=== PATIENT | female | born 1995 | race Caucasian/White ===

== ENCOUNTER 2016-09-30 13:41 | Emergency (ER) | payer BC, OTHER ==
[2016-09-30 16:28] VITALS: BP 118/55
--- NOTE | 2016-09-30 17:19 | UC ---
Throat Pain/Nasal Osorio HPI - HPI Summary HPI Summary: pt presents with c/o generalized malaise, cough, nasal congestion, sinus pressure,chills and PND X 10 days Pt has history of sinusitis, environmental allergies that she does not manage with OTC antihistamine. - History of Current Complaint Chief Complaint: UCRespiratory Stated Complaint: SINUS COMPLAINT Time Seen by Provider: 09/30/16 16:55 Hx Obtained From: Patient Hx Last Menstrual Period: unknown ?: No Onset/Duration: Gradual Onset, Lasting Days Severity: Mild Associated Signs & Symptoms: Positive: Sinus Discomfort - maxillary Related History: Seasonal Allergies - not managed with antihistamines - Allergies/Home Medications Allergies/Adverse Reactions: Allergies Allergy/AdvReac Type Severity Reaction Status Date / Time No Known Allergies Allergy Verified 09/30/16 16:23 PMH/Surg Hx/FS Hx/Imm Hx Previously Healthy: Yes Respiratory History Of: Reports: Asthma - as a child Other History Of: Negative For: Anticoagulant Therapy - Surgical History Surgical History: None - Family History Known Family History: Positive: None, Other - postivie FMH of lacerations - Social History Occupation: Student Alcohol Use: Occasionally Substance Use Type: None Smoking Status (MU): Never Smoked Tobacco - Immunization History Most Recent Tetanus Shot: UTD Review of Systems Constitutional: Fever, Chills, Fatigue Skin: Negative Eyes: Negative ENT: Other - sinus pressure, nasal congestion, PND Respiratory: Cough Cardiovascular: Negative Gastrointestinal: Negative Genitourinary: Negative Motor: Negative Neurovascular: Negative Musculoskeletal: Myalgia Neurological: Headache Psychological: Negative All Other Systems Reviewed And Are Negative: Yes Physical Exam Triage Information Reviewed: Yes Appearance: Ill-Appearing Vital Signs: Initial Vital Signs Temp 99 F 09/30/16 16:24 Pulse 90 09/30/16 16:24 Resp 16 09/30/16 16:24 BP 118/55 09/30/16 16:24 Pulse Ox 99 09/30/16 16:24 Vital Signs Reviewed: Yes Eye Exam: Normal ENT Exam: Other ENT: Positive: Nasal congestion, Other: - frontal and maxillary tenderness, Neck exam: Normal Respiratory Exam: Normal Cardiovascular Exam: Normal Musculoskeletal Exam: Normal Neurological Exam: Normal Psychological Exam: Normal Skin Exam: Normal Throat Pain/Nasal Course/Dx - Differential Dx/Diagnosis Differential Diagnosis/HQI/PQRI: Sinusitis, URI Provider Diagnoses: sinusitis Discharge - Discharge Plan Condition: Stable Disposition: HOME Prescriptions: Amoxicillin (*) [Amoxicillin 875 MG (*)] 875 mg PO BID #20 tab Loratadine & Pseudoephedrine [Claritin-D 24 Hour 10-240 mg] 1 tab PO DAILY #7 tab Patient Education Materials: Sinusitis (ED), Allergies (ED) Referrals: [facility] [place] [facility] [Outside] Non Staff,Doctor [Primary Care Provider] - Additional Instructions: Please follow up with your PCP or return to clinic as needed.
== END 2016-09-30 17:26 | disposition home or self-care (01) ==
LOC: UCCORT 13:41
DX: J32.9 Chronic sinusitis, unspecified (principal)
CPT/HCPCS: 87502; 99212; G0463

== ENCOUNTER 2016-10-03 17:07 | Emergency (ER) | payer BC | END 2016-10-03 18:58 | disposition left against medical advice (07) | LOC: UCCORT 17:07 | DX: N39.9 Disorder of urinary system, unspecified (principal); Z53.21 Procedure and treatment not carried out due to patient leaving prior to being seen by health care provider ==

== ENCOUNTER 2016-10-05 09:05 | Emergency (ER) | payer BC ==
[2016-10-05 09:48] VITALS: BP 106/57
--- NOTE | 2016-10-05 10:16 | UC ---
Complaint Female HPI - HPI Summary HPI Summary: Patient is currently being treated for a sinus infection with amoxicillin, has had some dysruia and white cheesy discharge, lots of itching. she would also like cg/cl testing, becasue she has never had it and has been sexually active, denies any symptoms. - History Of Current Complaint Chief Complaint: UCSTDScreening Stated Complaint: URINARY/PERSONAL Time Seen by Provider: 10/05/16 10:00 Hx Obtained From: Patient Hx Last Menstrual Period: unknown ?: No Onset/Duration: Sudden Onset, Lasting Days Timing: Constant Severity Initially: Mild Severity Currently: Mild Character: Burning Aggravating Factor(s): Urination Associated Signs And Symptoms: Positive: Vaginal Discharge - Allergies/Home Medications Allergies/Adverse Reactions: Allergies Allergy/AdvReac Type Severity Reaction Status Date / Time No Known Allergies Allergy Verified 10/05/16 09:39 PMH/Surg Hx/FS Hx/Imm Hx Previously Healthy: Yes Respiratory History Of: Reports: Asthma - as a child Other History Of: Negative For: Anticoagulant Therapy - Surgical History Surgical History: None - Family History Known Family History: Positive: None, Other Negative: Cardiac Disease, Hypertension - Social History Alcohol Use: Occasionally Substance Use Type: None Smoking Status (MU): Never Smoked Tobacco - Immunization History Most Recent Tetanus Shot: UTD Review of Systems Constitutional: Negative Skin: Negative Eyes: Negative ENT: Negative Respiratory: Negative Cardiovascular: Negative Genitourinary: Dysuria, Frequency Motor: Negative Neurovascular: Negative Musculoskeletal: Negative Neurological: Negative Psychological: Negative All Other Systems Reviewed And Are Negative: Yes Physical Exam Triage Information Reviewed: Yes Appearance: Well-Nourished, Pain Distress Vital Signs: Initial Vital Signs Temp 98 F 10/05/16 09:40 Pulse 80 10/05/16 09:40 Resp 16 10/05/16 09:40 BP 106/57 10/05/16 09:40 Pulse Ox 100 10/05/16 09:40 Vital Signs Reviewed: Yes Eye Exam: Normal Eyes: Positive: Conjunctiva Clear ENT Exam: Normal ENT: Positive: Normal ENT inspection, Hearing grossly normal, Pharynx normal, TMs normal Dental Exam: Normal Neck exam: Normal Neck: Positive: Supple, Nontender, No Lymphadenopathy Respiratory Exam: Normal Respiratory: Positive: Chest non-tender, Lungs clear, Normal breath sounds Cardiovascular Exam: Normal Cardiovascular: Positive: RRR, No Murmur, Pulses Normal Abdominal Exam: Normal Abdomen Description: Positive: Nontender, No Organomegaly, Soft Bowel Sounds: Positive: Present Musculoskeletal Exam: Normal Musculoskeletal: Positive: Strength Intact, ROM Intact Neurological Exam: Normal Neurological: Positive: Alert, Muscle Tone Normal Psychological Exam: Normal Skin: Positive: Other - perineal itching and redness, Complaint Female Dx - Course Course Of Treatment: hx obtained, exam performed, UA obtained and culture sent. Urine CG/CL sent. d/c'd amoxicillin and started keflex to cover sinus and UTI. treated for panchito - Differential Dx/Diagnosis Differential Diagnosis/HQI/PQRI: Sexually Transmitted Disease, Ureteral Stone, Urinary Tract Infection, Other - vaginitis Provider Diagnoses: UTI. vaginitis. std testing Discharge - Discharge Plan Condition: Stable Disposition: HOME Prescriptions: Cephalexin CAP* [Keflex CAP*] 500 mg PO BID #10 cap Fluconazole 150 MG (NF) [Diflucan 150 mg (NF)] 150 mg PO ONCE #2 tab Patient Education Materials: Urinary Tract Infection in Women (ED), Vulvovaginal Candidiasis (ED) Additional Instructions: stop the amoxicillin start the new antibiotic Keflex take 1 difulcan now, take one tab next increase fluid intake. Lab test was sent for STD
== END 2016-10-05 10:35 | disposition home or self-care (01) ==
LOC: UCCORT 09:05
DX: N39.0 Urinary tract infection, site not specified (principal); N76.0 Acute vaginitis; Z11.3 Encounter for screening for infections with a predominantly sexual mode of transmission
CPT/HCPCS: 81003; 87086; 87491; 87591; 99212; G0463

== ENCOUNTER 2017-03-14 11:24 | Emergency (ER) | payer BC ==
--- NOTE | 2017-03-14 11:47 | UC ---
Throat Pain/Nasal Osorio HPI - HPI Summary HPI Summary: right sided sinus pressure and congestion for the day. She has had a mild sore throat as well. she has hx of sinus infections and congestion as well as allergies. she uses claritin d. - History of Current Complaint Stated Complaint: SINUS COMPLAINT Time Seen by Provider: 03/14/17 11:32 Hx Obtained From: Patient Hx Last Menstrual Period: unknown Onset/Duration: Gradual Onset Severity: Moderate Cough: None Associated Signs & Symptoms: Positive: Sinus Discomfort, Nasal Discharge. Negative: Fever, Vomiting, Rash Related History: Seasonal Allergies - Epiglottits Risk Factors Epiglottis Risk Factors: Negative - Allergies/Home Medications Allergies/Adverse Reactions: Allergies Allergy/AdvReac Type Severity Reaction Status Date / Time No Known Allergies Allergy Verified 03/14/17 11:42 PMH/Surg Hx/FS Hx/Imm Hx Previously Healthy: No - seasonal allergies. Other History Of: Negative For: Anticoagulant Therapy - Surgical History Surgical History: None - Family History Known Family History: Positive: None, Other Negative: Cardiac Disease, Hypertension - Social History Alcohol Use: Occasionally Substance Use Type: None Smoking Status (MU): Never Smoked Tobacco - Immunization History Most Recent Tetanus Shot: UTD Review of Systems ENT: Sore Throat, Sinus Congestion All Other Systems Reviewed And Are Negative: Yes Physical Exam Triage Information Reviewed: Yes Appearance: Well-Appearing, No Pain Distress, Well-Nourished Vital Signs Reviewed: Yes Eye Exam: Normal ENT Exam: Normal Dental Exam: Normal Neck exam: Normal Respiratory Exam: Normal Cardiovascular Exam: Normal Abdominal Exam: Normal Musculoskeletal Exam: Normal Neurological Exam: Normal Psychological Exam: Normal Skin Exam: Normal Throat Pain/Nasal Course/Dx - Course Course Of Treatment: she will try decongestants for several days and nasal irrigation . If not improving and if this persists or if she gets unilateral tendernss or pain, she will start antibiotic. - Differential Dx/Diagnosis Differential Diagnosis/HQI/PQRI: Mononucleosis, Otitis Media, Pharyngitis, Sinusitis, Tonsillitis, URI Provider Diagnoses: sinus congestion. uri. right sinusitis. Discharge - Discharge Plan Condition: Good Disposition: HOME Prescriptions: Amoxicillin PO (*) [Amoxicillin 500 MG CAP*] 500 mg PO TID #30 cap Patient Education Materials: Sinusitis (ED), Rhinosinusitis (ED), Allergies (ED ) Referrals: Non Staff,Doctor [Primary Care Provider] - Additional Instructions: return here for any worsening.
[2017-03-14 11:52] VITALS: BP 104/61
== END 2017-03-14 11:59 | disposition home or self-care (01) ==
LOC: UCCORT 11:24
DX: J32.9 Chronic sinusitis, unspecified (principal); J06.9 Acute upper respiratory infection, unspecified
CPT/HCPCS: 99212; G0463

== ENCOUNTER 2018-04-30 19:51 | Emergency (ER) | payer BC ==
[2018-04-30 20:34] VITALS: BP 116/56
--- NOTE | 2018-04-30 21:17 | ED ---
Throat Pain/Nasal Congestion - HPI Summary HPI Summary: 22 yr old female with sinus congestion, post nasal drip, coughing, and now left maxillary sinus pain and pressure for past few days. Her sinus symptoms have been going on for about three weeks at this point. - History of Current Complaint Chief Complaint: UCGeneralIllness Time Seen by Provider: 04/30/18 20:34 - Allergies/Home Medications Allergies/Adverse Reactions: Allergies Allergy/AdvReac Type Severity Reaction Status Date / Time No Known Allergies Allergy Verified 04/30/18 20:31 Home Medications: Home Medications Etonogest/Eth.estradiol (Nf) [Nuvaring Vaginal Ring] 1 each VAGINAL .SEE COMMENTS 04/30/18 [History Confirmed 04/30/18] PMH/Surg Hx/FS Hx/Imm Hx Endocrine/Hematology History: Denies: Hx Anticoagulant Therapy, Hx Blood Disorders Respiratory History: Reports: Hx Asthma - as a child Infectious Disease History: No Infectious Disease History: Denies: Hx Human Immunodeficiency Virus (HIV), Hx of Known/Suspected MRSA, Traveled Outside the [place] in Last 30 Days - Family History Known Family History: Positive: None, Other Negative: Cardiac Disease, Hypertension - Social History Alcohol Use: Occasionally Substance Use Type: Reports: None Smoking Status (MU): Never Smoked Tobacco Review of Systems Constitutional: Negative Positive: Sore Throat, Nasal Discharge Positive: Cough All Other Systems Reviewed And Are Negative: Yes Physical Exam Triage Information Reviewed: Yes Vital Signs On Initial Exam: Initial Vitals Temp Pulse Resp BP Pulse Ox 98.1 F 65 16 116/56 100 04/30/18 20:28 04/30/18 20:28 04/30/18 20:28 04/30/18 20:28 04/30/18 20:28 Vital Signs Reviewed: Yes Appearance: Positive: Well-Appearing, No Pain Distress Skin: Positive: Warm, Skin Color Reflects Adequate Perfusion Head/Face: Positive: Normal Head/Face Inspection Eyes: Positive: EOMI ENT: Positive: Nasal congestion, Nasal drainage, TMs normal, Sinus tenderness - left Neck: Positive: Nontender Respiratory/Lung Sounds: Positive: Clear to Auscultation, Breath Sounds Present Cardiovascular: Positive: RRR. Negative: Murmur Abdomen Description: Positive: Nontender Musculoskeletal: Positive: Strength/ROM Intact Neurological: Positive: Sensory/Motor Intact, Alert, Oriented to Person Place, Time, CN Intact II-III, Normal Gait, Speech Normal Psychiatric: Positive: Normal - [place] Coma Scale Best Eye Response: 4 - Spontaneous Best Motor Response: 6 - Obeys Commands Best Verbal Response: 5 - Oriented Coma Scale Total: 15 Diagnostics - Vital Signs Vital Signs Temp Pulse Resp BP Pulse Ox 04/30/18 20:28 98.1 F 65 16 116/56 100 - Laboratory Lab Statement: Any lab studies that have been ordered have been reviewed, and results considered in the medical decision making process. EENT Course/Dx - Course Course Of Treatment: 22 yr old female with sinusitis. Rx Augmentin - Diagnoses Provider Diagnoses: Sinusitis Discharge - Sign-Out/Discharge Documenting (check all that apply): Patient Departure All imaging exams completed and their final reports reviewed: No Studies - Discharge Plan Condition: Good Disposition: HOME Prescriptions: Amoxicillin/Clavulanate TAB* [Augmentin TAB 875*] 875 mg PO BID #20 tab Patient Education Materials: Sinusitis (ED) Referrals: [facility] [place] [facility] [Outside] Non Staff,Doctor [Primary Care Provider] - - Billing Disposition and Condition Condition: GOOD Disposition: Home
== END 2018-04-30 21:22 | disposition home or self-care (01) ==
LOC: UCCORT 19:51
DX: J32.9 Chronic sinusitis, unspecified (principal)
CPT/HCPCS: 99212; G0463

== ENCOUNTER 2018-11-11 09:11 | Emergency (ER) | payer BC ==
[2018-11-11 09:30] VITALS: BP 103/78
[2018-11-11] MEDS ORDERED: Albuterol/Ipratropium NEB.SOL* Albuterol 2.5 MG/Ipratropium 0.5 MG 3 ML INH ONE (09:49)
--- NOTE | 2018-11-11 10:16 | ED ---
Throat Pain/Nasal Congestion - HPI Summary HPI Summary: 23 yr old female with the complaint of sinus congestion, post nasal drip for past few weeks, and now for the past few days she has developed a productive cough and feeling of some tightness in chest with coughing spells. The patient has had fever as well over the past three days once a day of 100 F. - History of Current Complaint Chief Complaint: UCGeneralIllness Time Seen by Provider: 11/11/18 09:40 - Allergies/Home Medications Allergies/Adverse Reactions: Allergies Allergy/AdvReac Type Severity Reaction Status Date / Time No Known Allergies Allergy Verified 11/11/18 09:25 Home Medications: Home Medications Lomedia Control 1 tab PO DAILY 11/11/18 [History Confirmed 11/11/18] PMH/Surg Hx/FS Hx/Imm Hx Endocrine/Hematology History: Denies: Hx Anticoagulant Therapy, Hx Blood Disorders Respiratory History: Reports: Hx Asthma Infectious Disease History: No Infectious Disease History: Denies: Hx Human Immunodeficiency Virus (HIV), Hx of Known/Suspected MRSA, Traveled Outside the in Last 30 Days - Family History Known Family History: Positive: None, Other Negative: Cardiac Disease, Hypertension - Social History Occupation: Student Alcohol Use: Occasionally Substance Use Type: Reports: None Smoking Status (MU): Never Smoked Tobacco Review of Systems Constitutional: Negative Positive: Other - sinus infection, post nasal drip. Positive: Cough All Other Systems Reviewed And Are Negative: Yes Physical Exam Triage Information Reviewed: Yes Vital Signs On Initial Exam: Initial Vitals Temp Pulse Resp BP Pulse Ox 98.1 F 93 16 103/78 97 11/11/18 09:26 11/11/18 09:26 11/11/18 09:26 11/11/18 09:26 11/11/18 09:26 Vital Signs Reviewed: Yes Appearance: Positive: Well-Appearing, No Pain Distress Skin: Positive: Warm, Skin Color Reflects Adequate Perfusion Head/Face: Positive: Normal Head/Face Inspection Eyes: Positive: EOMI, SHEFALI ENT: Positive: Nasal congestion, Nasal drainage, TMs normal, Sinus tenderness Neck: Positive: Nontender Respiratory/Lung Sounds: Positive: Breath Sounds Present, Wheezes - focal wheeze in the right base. Cardiovascular: Positive: RRR. Negative: Murmur Abdomen Description: Negative: Distended Musculoskeletal: Positive: Strength/ROM Intact Neurological: Positive: Sensory/Motor Intact, Alert, Oriented to Person Place, Time, CN Intact II-III, Normal Gait, Speech Normal Psychiatric: Positive: Normal Diagnostics - Vital Signs Vital Signs Temp Pulse Resp BP Pulse Ox 11/11/18 09:26 98.1 F 93 16 103/78 97 - Laboratory Lab Statement: Any lab studies that have been ordered have been reviewed, and results considered in the medical decision making process. - Radiology cary bruner chest Radiology Interpretation Completed By: Radiologist - nad Re-Evaluation - Re-Evaluation First Eval Re-Evaluation Time: 10:30 Change: Improved Comment: good air movement. much less wheeze right lower chest, but still faint wheeze present. EENT Course/Dx - Course Course Of Treatment: 23 yr old female with sinusitis, and acute bronchitis. Rx with augmentin, prednisone, and albuterol. - Diagnoses Provider Diagnoses: Sinusitis, Acute bronchitis Discharge - Sign-Out/Discharge Documenting (check all that apply): Patient Departure All imaging exams completed and their final reports reviewed: Yes - Discharge Plan Condition: Good Disposition: HOME Prescriptions: Albuterol HFA INHALER* [Ventolin HFA Inhaler*] 1 - 2 puff INH Q6H PRN #1 mdi PRN Reason: Cough Amoxicillin/Clavulanate TAB* [Augmentin TAB 875*] 875 mg PO BID #20 tab predniSONE TAB* [Deltasone 20 MG TAB*] 40 mg PO DAILY #10 tab Patient Education Materials: Sinusitis (ED), Acute Bronchitis (ED) Referrals: No Primary Care Phys,NOPCP [Primary Care Provider] - [facility] [place] [place]] - 4 Days - Billing Disposition and Condition Condition: GOOD Disposition: Home
== END 2018-11-11 10:50 | disposition home or self-care (01) ==
LOC: UCCORT 09:11
DX: J32.9 Chronic sinusitis, unspecified (principal); J20.9 Acute bronchitis, unspecified; R05 Cough; J45.909 Unspecified asthma, uncomplicated
CPT/HCPCS: 71046; 99212; A9270-GY; G0463